=== PATIENT | male | born 2000 | race Caucasian/White ===

== ENCOUNTER 2023-10-16 20:04 | Emergency (ER) | payer SELFPAY ==
[2023-10-16 20:20] VITALS: BP 150/96
[2023-10-16 20:49] LABS: % Basophils 0.6 % (0-2); % Eosinophils 0.9 % (0-6); % Immature Granulocytes 0.2 % (0-0.5); % Lymphocytes 28.2 % (20.5-51.1); % Monocytes 10.4 % (1.7-9.3); % Neutrophils 59.7 % (42.2-75.2); Absolute Eosinophils 0.1 10^3/uL (0-0.7); Absolute Lymphocytes 1.8 10^3/uL (1.2-3.4); Absolute Monocytes 0.7 10^3/uL (0.1-0.6); Absolute Neutrophils 3.9 10^3/uL (1.4-6.5); Hematocrit 45.7 % (39.0-52.0); Hemoglobin 16.3 g/dL (13.0-18.0); Mean Corp Hgb Conc. 35.7 g/dL (33.0-37.0); Mean Corpuscular Hgb 30.5 pg (27.0-31.0); Mean Corpuscular Volume 85.6 fL (80.0-94.0); Mean Platelet Volume 10.1 fL (7.4-10.4); Nucleated Red Blood Cells % 0 % (-); Platelet Count 241 10^3/uL (130-400); Red Blood Cell Count 5.34 10^6/uL (4.70-6.10); White Blood Cell Count 6.5 10^3/uL (4.8-10.8)
[2023-10-16 21:11] LABS: ALT (SGPT) 70 U/L (0-50); AST (SGOT) 40 U/L (17-59); Albumin 4.9 g/dl (3.5-5.0); Alkaline Phosphatase 74 U/L (38-126); Blood Urea Nitrogen 17 mg/dl (9-20); Calcium 10.1 mg/dl (8.4-10.2); Carbon Dioxide 29 mmol/L (22-30); Chloride 99 mmol/L (98-107); Glucose 89 mg/dl (70-99); Lipase 84 U/L (23-300); Potassium 4.1 mmol/L (3.5-5.1); Sodium 137 mmol/L (135-145); Total Bilirubin 1.1 mg/dl (0.2-1.3); Total Protein 7.7 g/dl (6.3-8.2); eGFR > 60.00
[2023-10-16 22:10] VITALS: BP 126/70; BMI 28.5
[2023-10-16] MEDS: NSS 1000 IV (22:30)
[2023-10-16] MEDS: PEPCID 20 MG IV (22:31)
--- NOTE | 2023-10-16 22:59 | ED.GENMED ---
History of Present Illness
General
Chief Complaint: Abdominal Pain
Time Seen by Provider: 10/16/23 22:06
History of Present Illness
History of Present Illness:
24-year-old male presents the emergency department for evaluation of persistent diarrhea for the past 10 days. At the onset of symptoms he had nausea, vomiting, and diarrhea however the nausea and vomiting resolved within 1 to 2 days. Over the
past several days he has had increasing epigastric pain and GERD symptoms. The symptoms worsen with any food intake. Denies any recent travel or suspicious food intake prior to onset of symptoms. Denies any fevers, chills, or night sweats. No
recent antibiotics within the past 3 months. No ill contacts at home. No prior abdominal surgeries
Past History
Past History
ED Past Medical History: Psychiatric (Anxiety, Depression) and Other (COVID, )
ED Past Surgical History: None
Social History
Tobacco: Non-smoker
Alcohol: Occasional
Personal: Single
Living: with family
Review of Systems
Review of Systems
Allergies reviewed?: Yes
All Other Systems: ROS reviewed and negative except as documented in HPI and ROS
Phy Exam
Physical Exam
Physical Exam:
GEN: Well appearing, NAD, WDWN
HEENT: Oral mucosa moist, no scleral icterus
Cardiac: Regular rate
Lung: No respiratory distress, no tachypnea
Abdomen: Soft, generalized tenderness to all 4 quadrants with no rigidity or peritoneal signs
MSK: No gross deformity or injuries
Skin: Good color, no pallor or jaundice, no rashes
Neuro: AO x3, moves all extremities freely
Psych: Calm, cooperative
Course
Orders/Labs/Results
Orders:
Orders
10/16/23 20:34
CMP [Comprehensive Metabolic Panel] Urgent
Complete Blood Count/With Diff Urgent
Lipase Urgent
10/16/23 22:22
0.9% Sodium Chloride 1000 ml [Nss] 1,000 ml IV BOLUS
Famotidine [Pepcid] 20 mg IV NOW STA
Abnormal Lab Results
10/16/23
20:34
Absolute Monos (auto) 0.7 H 10^3/uL
(0.1-0.6)
Monocytes % 10.4 H %
(1.7-9.3)
ALT 70 H U/L
(0-50)
10/16/23 20:34
10/16/23 20:34
Vital Signs
Initial and Last Documented VS:
Initial Vital Signs
Temp Pulse Resp BP Pulse Ox
99.8 F 78 22 150/96 100
10/16/23 20:20 10/16/23 20:20 10/16/23 20:20 10/16/23 20:20 10/16/23 20:20
Last Documented Vital Signs
Temp Pulse Resp BP Pulse Ox
98.7 F 66 16 126/70 99
10/16/23 22:10 10/16/23 22:10 10/16/23 22:10 10/16/23 22:10 10/16/23 22:10
MDM/Problems Addressed
MDM/Problems Addressed:
Patient's workup is reassuring, labs unremarkable and exam is not suspicious for acute surgical pathology. Do not feel imaging would be beneficial. Given the persistence of his diarrhea we will send for stool cultures, patient was unable to
provide samples in the emergency department. Will start on PPIs due to epigastric pain and GERD symptoms however he is advised to avoid taking these until stool specimens collected decreased chances of false negative or false positive test result.
Advised outpatient GI follow-up if symptoms do not improve
*Critical Care Note
Total Time (30-74mins, 75-104mins- exclusive of procedures): Not Applicable
ED Attending Note
-
Portions of this chart may have been created with voice recognition software.� Occasional wrong word or��sound alike� substitutions may have occurred due to the inherent limitations of voice recognition software.
Discharge Plan
Departure
Patient Disposition: Home (Routine Discharge)
Date of Disposition: 10/16/23
Time of Disposition: 23:22
Patient with high blood pressure during this ER visit?: No
Discharge Problem:
Abdominal pain, Diarrhea
Instructions: Diarrhea in teens and adults
Prescriptions:
New
pantoprazole 40 mg tablet,delayed release (DR/EC)
40 mg PO DAILY Qty: 10 0RF
Referrals:
Guerline Reyes MD [Active] -
Michelle Miller MD [Family Provider] -
Activity Restrictions/Additional Instructions:
Once you have provided stool specimens, you may take Imodium to decrease your diarrhea; however, this is not necessary
Take the pantoprazole as prescribed for 10 days, however do not take this until your stool specimen has been collected
Test results typically take 24-48 hours, and if antibiotics are needed, we will contact you
If your symptoms do not improve, and you have negative test results, please follow up with the listed GI specialist
Interventions
Interventions:
*Risk Screen - Suicide Last Done: 10/16/23 20:20
*General Assessment Last Done: 10/16/23 22:10
*Neglect/Abuse Screening Last Done: 10/16/23 20:20
ED- Fall Risk Assessment Last Done: 10/16/23 22:10
[id number] Assessment Last Done: 10/16/23 22:10
Discharge Date and Time
Print Language: CZECH
== END 2023-10-17 00:28 | disposition home or self-care (01) ==
LOC: EMR 20:04
PROVIDERS: Student in an Organized Health Care Education/Training Program; EMERGENCY PHYSICIAN Emergency Medicine; FAMILY PHYSICIAN Family Medicine
DX: R19.7 Diarrhea, unspecified (principal); R10.13 Epigastric pain; F32.A Depression, unspecified; F41.9 Anxiety disorder, unspecified; Z86.16 Personal history of COVID-19; Z91.030 Bee allergy status; Z91.011 Allergy to milk products
CPT/HCPCS: 99284; 96374; 96361; 80053; 83690; 85025

== ENCOUNTER → 2023-10-19 12:21 | Outpatient (REF) | payer MEDICARE, SELFPAY | LOC: REG 12:21 | PROVIDERS: ATTENDING PHYSICIAN Physician Assistant; FAMILY PHYSICIAN Family Medicine | DX: R10.10 Upper abdominal pain, unspecified (principal) | CPT/HCPCS: 87045; 87046; 87427 ==